=== PATIENT | female | born 1955 | race Caucasian/White ===

== ENCOUNTER 2018-03-17 16:14 | Emergency (ER) | payer OTHER ==
[~2018-03-17] VITALS: Ht 167.6 cm; Wt 98.5 kg
[~2018-03-17 16:14] MED LIST: NOHOMEMEDS
[2018-03-17 16:57] LABS: HEMATOCRIT 42.5 % (36.0-46.0); HEMOGLOBIN 14.2 G/DL (11.9-15.5); MCH 32.4 PG (29.0-34.0); MCHC 33.4 G/DL (30.0-36.0); RBC DIS.WIDTH-CV 12.9 % (11.8-14.6); RBC DIS.WIDTH-SD 46.3 % (39-53); RED BLOOD COUNT 4.38 M/uL (3.80-5.20); WHITE BLOOD COUNT 5.9 K/uL (4.1-10.2)
[2018-03-17 17:08] LABS: ALBUMIN 4.1 g/dL (3.2-4.8); CHLORIDE 103 mEq/L (99-109); POTASSIUM 3.6 mEq/L (3.7-5.4); SODIUM 138 mEq/L (136-147)
[2018-03-17 17:10] LABS: GLUCOSE 102 mg/dL (70-99); TOTAL PROTEIN 7.5 g/dL (6.4-8.3)
[2018-03-17 17:12] LABS: TOTAL BILIRUBIN 0.8 mg/dL (0.0-1.0)
[2018-03-17 17:14] LABS: ALKALINE PHOSPHATASE 72 IU/L (3-129); CREATININE 0.9 mg/dL (0.6-1.3); GFR ESTIMATE (CALCULATED) > 59 mL/min/
[2018-03-17 17:15] LABS: AST (GOT) 24 IU/L (2-34); UREA NITROGEN (BUN) 9 mg/dL (9-23)
[2018-03-17 17:17] LABS: ALT (GPT) 23 IU/L (3-49); LIPASE 22 U/L (1.0-51.0)
[2018-03-17 18:16] LABS: PLATELET COUNT 218 K/uL (156-360)
[2018-03-17 18:27] LABS: APPEARANCE CLEAR ((CLEAR)); BILIRUBIN NEGATIVE; BLOOD SMALL; COLOR COLORLESS ((YELLOW)); GLUCOSE (STRIP) NEGATIVE; KETONES NEGATIVE; LEUKOCYTES NEGATIVE; NITRITE NEGATIVE; PROTEIN (STRIP) NEGATIVE; SPECIFIC GRAVITY 1.003 (1.000-1.030); UROBILINOGEN 0.2 MG/DL (0.2-1.0)
[2018-03-17 18:38] LABS: BACTERIA RARE /HPF; EPITHELIAL CELLS RARE /HPF; MUCUS NONE SEEN /LPF; RED BLOOD CELLS 0-5 /HPF (0-5); UCUL ADDED? NO; WHITE BLOOD CELLS 0-5 /HPF (0-5)
[2018-03-17 18:56] LABS: TROP-I INTERPRETATION NEGATIVE; TROPONIN-I 0.04 ng/mL (0.0-0.30)
[2018-03-17 20:33] LABS: TROP-I INTERPRETATION NEGATIVE; TROPONIN-I 0.02 ng/mL (0.0-0.30)
[2018-03-17] MEDS ORDERED: HYDROCHLOROTH12.5 M3 PO (21:59)
[2018-03-17 22:19] VITALS: BP 160/89
== END 2018-03-17 22:21 | disposition home or self-care (01) ==
LOC: EME 16:14
PROVIDERS: Physician Assistant Medical
DX: R42 Dizziness and giddiness (principal); I10 Essential (primary) hypertension; H91.90 Unspecified hearing loss, unspecified ear
CPT/HCPCS: 70450; 80053; 81003; 83690; 84484; 85027; 87493; 87506; 93005; 99281; 99285; J7030

== ENCOUNTER 2018-03-26 14:26 | Emergency (ER) | payer OTHER ==
[~2018-03-26] VITALS: Ht 167.6 cm; Wt 96.3 kg
[~2018-03-26 14:26] MED LIST changes: +HYDROCHLOROTH12.5 M3 PO
[2018-03-26 15:13] LABS: BASOPHIL (%) 0.5 % (0-1); EOSINOPHIL (%) 3.1 % (0-5); EOSINOPHIL COUNT 0.2 K/uL (0-0.3); HEMATOCRIT 44.1 % (36.0-46.0); HEMOGLOBIN 14.5 G/DL (11.9-15.5); IMMATURE GRANULOCYTE (%) 0.3 % (0.0-0.7); LYMPHOCYTE (%) 25.3 % (15-42); LYMPHOCYTE COUNT 1.5 K/uL (1.0-2.8); MCH 32.5 PG (29.0-34.0); MCHC 32.9 G/DL (30.0-36.0); MCV 98.9 FL (83-99); MONOCYTE (%) 9.7 % (3-12); MONOCYTE COUNT 0.6 K/uL (0-0.8); NEUTROPHIL (%) 61.1 % (45-76); NEUTROPHIL COUNT 3.5 K/uL (1.8-6.4); PLATELET COUNT 225 K/uL (156-360); RBC DIS.WIDTH-CV 12.7 % (11.8-14.6); RBC DIS.WIDTH-SD 45.8 % (39-53); RED BLOOD COUNT 4.46 M/uL (3.80-5.20); WHITE BLOOD COUNT 5.8 K/uL (4.1-10.2)
[2018-03-26 15:37] LABS: CHLORIDE 104 mEq/L (99-109); POTASSIUM 3.9 mEq/L (3.7-5.4); SODIUM 142 mEq/L (136-147)
[2018-03-26 15:39] LABS: GLUCOSE 98 mg/dL (70-99)
[2018-03-26 15:40] LABS: TROP-I INTERPRETATION NEGATIVE; TROPONIN-I < 0.01 ng/mL (0.0-0.30)
[2018-03-26 15:43] LABS: CREATININE 0.9 mg/dL (0.6-1.3); GFR ESTIMATE (CALCULATED) > 59 mL/min/; UREA NITROGEN (BUN) 9 mg/dL (9-23)
[2018-03-26] MEDS ORDERED: HYDROCHLOROTHIA25 MG PO (16:09)
[2018-03-26 16:40] VITALS: BP 155/78
== END 2018-03-26 16:44 | disposition home or self-care (01) ==
LOC: EME 14:26
PROVIDERS: Emergency Medicine
DX: I10 Essential (primary) hypertension (principal); R42 Dizziness and giddiness; R51 Headache; Z91.14 Patient's other noncompliance with medication regimen; H91.90 Unspecified hearing loss, unspecified ear; Z87.891 Personal history of nicotine dependence
CPT/HCPCS: 80048; 84484; 85025; 93005

== ENCOUNTER 2018-04-01 06:20 | Observation (INO) | payer OTHER ==
[~2018-04-01] VITALS: Ht 157.5 cm; Wt 96.5 kg
[~2018-04-01 06:20] MED LIST changes: +HYDROCHLOROTHIA25 MG PO
[2018-04-01 07:02] LABS: HEMATOCRIT 42.8 % (36.0-46.0); HEMOGLOBIN 14.8 G/DL (11.9-15.5); MCH 32.4 PG (29.0-34.0); MCHC 34.6 G/DL (30.0-36.0); PLATELET COUNT 217 K/uL (156-360); RBC DIS.WIDTH-CV 12.4 % (11.8-14.6); RBC DIS.WIDTH-SD 42.8 % (39-53); RED BLOOD COUNT 4.57 M/uL (3.80-5.20); WHITE BLOOD COUNT 6.6 K/uL (4.1-10.2)
[2018-04-01 07:03] LABS: MCV 93.7 FL (83-99)
[2018-04-01 07:27] LABS: CHLORIDE 94 MEQ/L (99-109); CREATININE 1.1 MG/DL (0.6-1.3); GFR ESTIMATE (CALCULATED) 53 mL/min/; GLUCOSE 111 mg/dL (70-99); POTASSIUM 2.7 MEQ/L (3.7-5.4); SODIUM 137 MEQ/L (136-147); UREA NITROGEN (BUN) 16 mg/dL (9-23)
[2018-04-01 07:28] LABS: TROP-I INTERPRETATION NEGATIVE; TROPONIN-I 0.02 ng/mL (0.0-0.30)
[2018-04-01 07:57] LABS: APPEARANCE CLEAR ((CLEAR)); BILIRUBIN NEGATIVE; BLOOD MODERATE; COLOR STRAW ((YELLOW)); GLUCOSE (STRIP) NEGATIVE; KETONES NEGATIVE; LEUKOCYTES NEGATIVE; NITRITE NEGATIVE; PROTEIN (STRIP) NEGATIVE; SPECIFIC GRAVITY 1.008 (1.000-1.030); UROBILINOGEN 0.2 MG/DL (0.2-1.0)
[2018-04-01 07:59] LABS: BACTERIA RARE /HPF; EPITHELIAL CELLS RARE /HPF; MUCUS NONE SEEN /LPF; RED BLOOD CELLS 0-5 /HPF (0-5); UCUL ADDED? NO; WHITE BLOOD CELLS 0-5 /HPF (0-5)
[2018-04-01 08:56] LABS: MAGNESIUM 2.1 mg/dl (1.3-2.7)
[2018-04-01 10:00] LABS: ALBUMIN 4.3 G/DL (3.2-4.8); ALKALINE PHOSPHATASE 62 IU/L (3-129); ALT (GPT) 25 IU/L (3-49); AST (GOT) 19 IU/L (2-34); DIRECT BILIRUBIN 0.1 mg/dL (0.0-0.3); HDL CHOLESTEROL 47 MG/DL (Desirable>=50); LDL CHOLESTEROL 135 mg/dL (Desirable<100); NON-HDL CHOLESTEROL 154 mg/dL (Desirable<160); TOTAL BILIRUBIN 0.7 MG/DL (0.0-1.0); TOTAL CHOLESTEROL 201 mg/dL (Desirable<200); TOTAL PROTEIN 7.4 G/DL (6.4-8.3); TRIGLYCERIDES 97 MG/DL (Normal: <150)
[2018-04-01 10:30] VITALS: BP 171/81
[2018-04-01 14:19] LABS: CHLORIDE 104 mEq/L (99-109); SODIUM 139 mEq/L (136-147)
[2018-04-01 14:20] LABS: GLUCOSE 137 mg/dL (70-99)
[2018-04-01 14:24] LABS: CREATININE 0.8 mg/dL (0.6-1.3); GFR ESTIMATE (CALCULATED) > 59 mL/min/
[2018-04-01 14:25] LABS: UREA NITROGEN (BUN) 12 mg/dL (9-23)
[2018-04-01 14:28] LABS: TROP-I INTERPRETATION NEGATIVE; TROPONIN-I < 0.01 ng/mL (0.0-0.30)
[2018-04-01 14:29] LABS: POTASSIUM 3.8 mEq/L (3.7-5.4)
[2018-04-01 19:04] VITALS: BP 160/79
[2018-04-01 19:50] VITALS: BP 139/67
[2018-04-01 20:25] LABS: TROP-I INTERPRETATION NEGATIVE; TROPONIN-I 0.02 ng/mL (0.0-0.30)
[2018-04-02 00:05] VITALS: BP 176/83
[2018-04-02 05:08] VITALS: BP 120/64
[2018-04-02 07:46] VITALS: BP 125/63
[2018-04-02] MEDS ORDERED: ASPIR-LOW81 MG PO (08:27)
[2018-04-02] MEDS ORDERED: K-DUR20 MEQ PO (08:28)
[2018-04-02 09:25] LABS: CHLORIDE 100 MEQ/L (99-109); CREATININE 0.9 MG/DL (0.6-1.3); GFR ESTIMATE (CALCULATED) > 59 mL/min/; POTASSIUM 3.3 MEQ/L (3.7-5.4); SODIUM 141 MEQ/L (136-147); UREA NITROGEN (BUN) 9 mg/dL (9-23)
[2018-04-02 09:30] LABS: GLUCOSE 97 mg/dL (70-99)
[2018-04-02 12:44] VITALS: BP 179/85
[2018-04-02 16:14] VITALS: BP 162/73
[2018-04-02 18:32] LABS: CHLORIDE 102 MEQ/L (99-109); CREATININE 0.9 MG/DL (0.6-1.3); GFR ESTIMATE (CALCULATED) > 59 mL/min/; GLUCOSE 98 mg/dL (70-99); POTASSIUM 3.7 MEQ/L (3.7-5.4); SODIUM 140 MEQ/L (136-147); UREA NITROGEN (BUN) 13 mg/dL (9-23)
[2018-04-02 19:50] VITALS: BP 152/72
[2018-04-03 00:37] VITALS: BP 139/77
[2018-04-03 04:28] VITALS: BP 131/63
[2018-04-03 07:28] LABS: CHLORIDE 102 MEQ/L (99-109); GFR ESTIMATE (CALCULATED) > 59 mL/min/; GLUCOSE 96 mg/dL (70-99); POTASSIUM 3.8 MEQ/L (3.7-5.4); SODIUM 142 MEQ/L (136-147); UREA NITROGEN (BUN) 14 mg/dL (9-23)
[2018-04-03 07:50] VITALS: BP 129/70
[2018-04-03 11:50] VITALS: BP 130/64
== END 2018-04-03 12:29 | disposition home or self-care (01) ==
LOC: EME 06:20 → 4SOUTH 08:26 → EDOF 08:26 → ENRESERV 08:27 → 4SOUTH 10:21
PROVIDERS: Emergency Medicine; Internal Medicine Cardiovascular Disease; Nurse Practitioner Adult Health
DX: R07.9 Chest pain, unspecified (principal); R94.39 Abnormal result of other cardiovascular function study; E87.6 Hypokalemia; I10 Essential (primary) hypertension; H91.90 Unspecified hearing loss, unspecified ear; Z90.49 Acquired absence of other specified parts of digestive tract
CPT/HCPCS: 71045; 80048; 80048 91; 80061; 80076; 81003; 83735; 83880; 84484; 85027; 85379; 93005; 99281; 99285; G0378; J3480; J7030